=== PATIENT | female | born 1985 ===

== ENCOUNTER 2025-05-09 09:00 | Day surgery (SDC) | payer OTHER ==
[2025-05-08 11:10] LABS: BASO % 0.7 % (0.1-1.2); EOS # 0.22 (0.04-0.54); EOS % 3.0 % (0.7-7.0); LYMPH # 1.68 (1.18-3.74); LYMPH % 22.9 % (19.3-53.1); MEAN PLATELET VOLUME 10.60 fl (9.4-12.4); MONO # 0.69 (0.24-0.82); MONO % 9.4 % (4.7-12.5); NEUT # 4.66 (1.56-6.13); NEUT % 63.6 % (34.0-71.1); RED CELL DISTRIBUTION WIDTH 12.4 % (11.6-14.4)
[2025-05-08 11:30] LABS: INR 0.96
[2025-05-09] MEDS ORDERED: CEFOXITIN SODIUM 2,000 MG VIAL IV ONE (10:16)
[2025-05-09] MEDS ORDERED: POVIDONE-IODINE 118 ML BOTT TOP ONE (11:15)
== END 2025-05-09 17:40 | disposition home or self-care (01) ==
LOC: CIR.AMB 09:00
PROVIDERS: ATTEND Obstetrics & Gynecology Maternal & Fetal Medicine
DX: O02.1 Missed abortion (principal)